=== PATIENT | male | born 1950 | race Caucasian/White ===

== ENCOUNTER 2021-03-24 19:44 | Inpatient (IN) | payer MEDICARE, OTHER ==
[~2021-03-24] VITALS: Ht 175.3 cm; Wt 62.1 kg
[2021-03-24 20:57] LABS: HEMOGLOBIN 9.3 gm/dl (14.0-17.5); RED BLOOD COUNT 3.42 M/UL (4.20-5.50)
[2021-03-24 21:04] LABS: BUN/CREATININE RATIO 32 (0-10)
[2021-03-24 21:24] LABS: WHITE BLOOD COUNT 0.8 K/UL (4.5-11.0)
[2021-03-25] MEDS ORDERED: OMEPRAZOLE20 MG PO (02:34)
[2021-03-25] MEDS ORDERED: LOPRESSOR 25 MG25 MG PO (02:37)
[2021-03-25] MEDS ORDERED: M-PAP160 MG/5 M PO (02:38)
[2021-03-25] MEDS ORDERED: LIDOCAINE-PRILOC5 GM TP (02:40)
[2021-03-25 07:29] LABS: HEMOGLOBIN 8.4 gm/dl (14.0-17.5); RED BLOOD COUNT 3.12 M/UL (4.20-5.50)
[2021-03-25 07:32] LABS: WHITE BLOOD COUNT 0.7 K/UL (4.5-11.0)
[2021-03-25 08:17] LABS: BUN/CREATININE RATIO 41 (0-10)
--- NOTE | 2021-03-25 16:01 | NUR ---
NOTIFIED DR. NICKERSON OF PATIENT CONDITION.
[2021-03-27 09:01] LABS: HEMOGLOBIN 7.7 gm/dl (14.0-17.5); RED BLOOD COUNT 2.85 M/UL (4.20-5.50)
[2021-03-27 09:10] LABS: WHITE BLOOD COUNT 1.4 K/UL (4.5-11.0)
[2021-03-27 09:25] LABS: BUN/CREATININE RATIO 32 (0-10)
--- NOTE | 2021-03-27 09:34 | NUR ---
patient request to turn off tube feeding stated he is getting nauseated. this is not a new thing for a patient when he gets nauseated he usually turn the feeding tube for 1-2 hours and turn in back on.
--- NOTE | 2021-03-27 10:32 | NUR ---
patient requested earlier to stopped feeding tube, dr. moss aware and recevied order
[2021-03-28 02:57] LABS: HEMOGLOBIN 7.8 gm/dl (14.0-17.5); RED BLOOD COUNT 2.92 M/UL (4.20-5.50)
[2021-03-28 03:00] LABS: WHITE BLOOD COUNT 3.5 K/UL (4.5-11.0)
[2021-03-28 03:17] LABS: BUN/CREATININE RATIO 34 (0-10)
== END 2021-03-28 12:12 | disposition home or self-care (01) | DRG 809 ==
LOC: ER1 19:44 → CDU 03-25 00:56 → M/S 03-25 00:56
PROVIDERS: Internal Medicine; Physician Assistant Medical; Registered Nurse; ADMIT Internal Medicine
PROC: 8E0ZXY6 Isolation (ICD-10-PCS; principal; 2021-03-28)
DX: D70.1 Agranulocytosis secondary to cancer chemotherapy (principal); C15.9 Malignant neoplasm of esophagus, unspecified; D61.810 Antineoplastic chemotherapy induced pancytopenia; Z20.822 Contact with and (suspected) exposure to COVID-19; R50.81 Fever presenting with conditions classified elsewhere; T45.1X5A Adverse effect of antineoplastic and immunosuppressive drugs, initial encounter; I10 Essential (primary) hypertension; E86.0 Dehydration; K20.80 Other esophagitis without bleeding; R19.7 Diarrhea, unspecified; Z87.891 Personal history of nicotine dependence
CPT/HCPCS: 36415; 71045; 74018; 80048; 80053; 81001; 83605; 83690; 83735; 84100; 85025; 85027; 87040; 96372; 96374; 96375; 99285; J0692; J1442; J2405; J7030; Q9967; U0002

== ENCOUNTER → 2021-05-04 | Outpatient (CLI) | payer MEDICARE, OTHER ==
[~2021-05-04] MED LIST: LIDOCAINE-PRILOC5 GM TP; LOPRESSOR 25 MG25 MG PO; M-PAP160 MG/5 M PO; OMEPRAZOLE20 MG PO
== END ==
LOC: CT 10:27
DX: C15.5 Malignant neoplasm of lower third of esophagus (principal); K22.8 Other specified diseases of esophagus
CPT/HCPCS: 71260; Q9967

== ENCOUNTER → 2022-02-14 | Outpatient (CLI) | payer MEDICARE, OTHER | LOC: CT 10:01 | DX: C15.5 Malignant neoplasm of lower third of esophagus (principal); E86.0 Dehydration; R01.1 Cardiac murmur, unspecified; R63.4 Abnormal weight loss | CPT/HCPCS: 71260; Q9967 ==

== ENCOUNTER → 2022-05-27 | Outpatient (CLI) | payer MEDICARE, OTHER | LOC: CT 09:18 | DX: C15.5 Malignant neoplasm of lower third of esophagus (principal); R01.1 Cardiac murmur, unspecified; E86.0 Dehydration; K22.89 Other specified disease of esophagus; Z96.89 Presence of other specified functional implants | CPT/HCPCS: 71260; Q9967 ==

== ENCOUNTER → 2022-05-29 | Outpatient (CLI) | payer MEDICARE, OTHER | LOC: MRI 13:34 | DX: R47.01 Aphasia (principal); C15.5 Malignant neoplasm of lower third of esophagus; R01.1 Cardiac murmur, unspecified; E86.0 Dehydration; G93.9 Disorder of brain, unspecified | CPT/HCPCS: 70553; A9577 ==